=== PATIENT | male | born 2000 | race Caucasian/White ===

== ENCOUNTER 2019-03-08 15:27 | Emergency (ER) | payer SELFPAY ==
[~2019-03-08] VITALS: Ht 163.8 cm; Wt 54.5 kg
[2019-03-08 15:34] VITALS: BP 126/62
[2019-03-08] MEDS ORDERED: TORADOL PO (16:12)
[2019-03-08] MEDS ORDERED: FLEXERIL PO (16:12)
[2019-03-08] MEDS ORDERED: DELTASONE20 MG PO (16:12)
== END 2019-03-08 16:22 | disposition home or self-care (01) | DRG 563 ==
LOC: ED 15:27
DX: S46.912A Strain of unspecified muscle, fascia and tendon at shoulder and upper arm level, left arm, initial encounter (principal); X50.3XXA Overexertion from repetitive movements, initial encounter; Y92.89 Other specified places as the place of occurrence of the external cause; Y99.0 Civilian activity done for income or pay